=== PATIENT | female | born 1985 | race Caucasian/White ===

== ENCOUNTER 2016-09-19 15:11 | Emergency (ER) | payer MEDICAID ==
[2016-09-19 15:20] VITALS: RESP 20
[2016-09-19] MEDS ORDERED: NS 1,000 ML IV ONE (15:45)
[2016-09-19 16:11] LABS: % IMMATURE GRANULYOCYTES 0.3 % (0.0-1.1); ABSOLUTE IMMATURE GRANULOCYTES 0.02 10^3/uL (0.00-0.10); ADD DIFF? NO; ADD MORPH? NO; ADD SCAN? NO; ATYPICAL LYMPHOCYTE FLAG 10 (0-99); FRAGMENT RBC FLAG 0 (0-99); HEMATOCRIT 43.6 % (38.0-47.0); HEMOGLOBIN 14.1 g/dL (12.6-16.3); LEFT SHIFT FLG 0 (0-99); LIPEMIA HEMOLYSIS FLAG 80 (0-99); MEAN CELL HEMOGLOBIN 30.3 pg (27.9-34.1); MEAN CELL HEMOGLOBIN CONCENTR. 32.3 g/dL (32.4-36.7); MEAN CELL VOLUME 93.8 fL (81.5-99.8); MEAN PLATELET VOLUME 9.6 fL (8.7-11.7); PLATELET CLUMPS FLAG 0 (0-99); PLATELET COUNT 328 10^3/uL (150-400); RED BLOOD CELL COUNT 4.65 10^6/uL (4.18-5.33); RED CELL DISTRIBUTION WIDTH 14.5 % (11.5-15.2)
--- NOTE | 2016-09-19 16:13 | EDPHY ---
H & P Time Seen by Provider: 09/19/16 15:44 HPI/ROS: CHIEF COMPLAINT: Blood sugar concerns HISTORY OF PRESENT ILLNESS: The patient is a 31 year old female who comes to the emergency department today because she was concerned that her blood sugar was high. Today she felt dizzy and had a mild headache. No other sx and no recent illness. She has not eaten since 3am. She denies alcohol or drug use. LMP was 1 month ago, it was normal at that time. A few weeks ago, she had vomiting x 3. Her friend took her blood sugar and it was 50. She has been concerned that she has diabetes since then. REVIEW OF SYSTEMS: A comprehensive 10 point review of systems is otherwise negative aside from elements mentioned in the history of present illness. Past Medical/Surgical History: Hepatitis C. Social History: No alcohol use. No drug use. Nonsmoker. Smoking Status: Former smoker Physical Exam: General Appearance: Alert, pleasant Eyes: Pupils equal and round, no conjunctival pallor or injection ENT, Mouth: Mucous membranes moist Neck: Normal inspection Respiratory: Lungs are clear to auscultation Cardiovascular: Regular rate and rhythm Gastrointestinal: Abdomen is soft and non-tender Neurological: A&O, nonfocal, normal gait Skin: Warm and dry, no rash Extremities: Nontender, no pedal edema Psychiatric: Mood and affect normal Constitutional: Initial Vital Signs Temperature (C) 36.9 C 09/19/16 15:18 Heart Rate 82 09/19/16 15:18 Respiratory Rate 20 09/19/16 15:18 Blood Pressure 122/80 H 09/19/16 15:18 O2 Sat (%) 98 09/19/16 15:18 O2 Delivery Mode Room Air Allergies/Adverse Reactions: naproxen sodium [From Aleve] Allergy (Unknown, Verified 09/19/16 15:17) NSAIDS (Non-Steroidal Anti-Inflamma Allergy (Verified 09/19/16 15:17) Penicillins Allergy (Verified 09/19/16 15:17) Home Medications: Medication Instructions Recorded NK [No Known Home Meds] 05/17/15 Medical Decision Making ED Course/Re-evaluation: iSTAT glucose is 87.No evidence of diabetes. Multiple questions/concerns, including "ketosis"; I addressed her concerns. I offered Tylenol to help with her headache, but the patient declines. Declines EKG. Differential Diagnosis: includes though not limited to hypoglycemia, diabetes, electrolyte abnormality, dysrhythmia. - Data Points Laboratory Results: Laboratory Results 09/19/16 15:55 09/19/16 15:55 Medications Given: Discontinued Medications Sodium Chloride (Ns) 1,000 mls @ 0 mls/hr IV ONCE ONE PRN Reason: Wide Open Stop: 09/19/16 15:46 Last Admin: 09/19/16 16:21 Dose: Not Given Departure - Departure Disposition: Home, Routine, Self-Care Clinical Impression: Dizziness Condition: Good Instructions: Dizziness (ED) Additional Instructions: 1. Drink plenty of fluids. 2. Followup with your primary care physician if you continue to have symptoms. Referrals: Srikanth Clark MD [Primary Care Provider] - As per Instructions Report Scribed for: Angelique Lainez Report Scribed by: Linda Tan Date of Report: 09/19/16 Time of Report: 16:14 Physician Review and Approval Statement: 09/19/16 16:14 Portions of this note were transcribed by a medical record technician. I personally performed the history, physical exam, and medical decision-making; and confirmed the accuracy of the information in the transcribed note.
[2016-09-19 16:26] VITALS: BP 112/76; PULSE 65; TEMP 97.9; O2SAT 97
[2016-09-19 16:35] LABS: ANION GAP 12 mEq/L (8-16); CALCIUM 9.6 mg/dL (8.5-10.4); CARBON DIOXIDE 21 mEq/l (22-31); CHLORIDE 109 mEq/L (97-110); CREATININE 0.5 mg/dL (0.6-1.0); GLOMERULAR FILTRATION RATE > 60; GLUCOSE 83 mg/dL (70-100); POTASSIUM 4.1 mEq/L (3.5-5.2); SODIUM 142 mEq/L (134-144)
== END 2016-09-19 16:26 | disposition home or self-care (01) ==
DX: R42 Dizziness and giddiness (principal); Z87.891 Personal history of nicotine dependence
CPT/HCPCS: 82947-QW